=== PATIENT | female | born 1950 | race African-American/Black ===

== ENCOUNTER 2016-04-28 18:49 | Emergency (ER) | payer MEDICARE, OTHER ==
[2016-04-28 20:07] LABS: BASOPHIL 0.2 % (0-2); EOSINOPHIL 0.7 % (0-7); HCT 39.5 % (37.0-47.0); HGB 12.8 g/dl (12.5-16.0); LYMPHOCYTE 12.4 % (15-48); MCH 30.3 pg (25.0-31.0); MCHC 32.4 g/dL (32.0-36.0); MCV 93.4 fL (78.0-100.0); MONOCYTE 7.6 % (0-12); MPV 8.7 fL (6.0-9.5); NEUTROPHIL 79.1 % (41-80); PLT 259 K/uL (150-400); RBC 4.23 M/uL (4.20-5.40); RDW 13.2 % (11.5-14.0); WBC 8.4 K/uL (4.0-10.5)
[2016-04-28 20:23] LABS: ALBUMIN 4.7 g/dL (3.4-4.8); BILIRUBIN - TOTAL 0.3 mg/dL (0.1-1.0); CREATININE 0.7 mg/dL (0.5-1.0); GLOBULIN (CALCULATION) 3.5 g/dL (2.2-4.2); POTASSIUM 3.5 mmol/L (3.5-5.1); TOTAL PROTEIN 8.2 g/dL (6.4-8.3)
== END 2016-04-28 21:44 | disposition home or self-care (01) ==
LOC: FER 18:49
PROVIDERS: Emergency Medicine
DX: S39.012A Strain of muscle, fascia and tendon of lower back, initial encounter (principal); K59.00 Constipation, unspecified; R06.02 Shortness of breath; J44.9 Chronic obstructive pulmonary disease, unspecified; Z87.891 Personal history of nicotine dependence; Z88.1 Allergy status to other antibiotic agents; Z79.51 Long term (current) use of inhaled steroids
CPT/HCPCS: 36415; 74022; 80053; 83690; 85025; J1885